=== PATIENT | male | born 1985 | race Caucasian/White ===

== ENCOUNTER 2017-01-27 05:36 | Emergency (ER) | payer SELFPAY | END 2017-01-27 06:09 | disposition home or self-care (01) | LOC: ER 05:36 | DX: L02.31 Cutaneous abscess of buttock (principal); M54.5 Low back pain; G89.29 Other chronic pain; F17.200 Nicotine dependence, unspecified, uncomplicated | CPT/HCPCS: 96372; 99284; A9270-GY; J1885 ==